=== PATIENT | female | born 1940 | race Caucasian/White ===

== ENCOUNTER 2016-12-12 13:58 | Inpatient (IN) ==
[2016-12-12] MEDS ORDERED: ONDANSETRON ODT 4 MG TABLET PO STA (14:24)
[2016-12-12] MEDS ORDERED: MORPHINE 2 MG/1 ML SYRINGE IV PRN (14:24)
[2016-12-12] MEDS ORDERED: ONDANSETRON 4 MG/2 ML VIAL ONE (14:31)
[2016-12-12] MEDS ORDERED: ONDANSETRON 4 MG/2 ML VIAL IV STA (14:44)
--- NOTE | 2016-12-12 14:53 | Emergency Department Note ---
Skip Hinkle Manpreet, am scribing for, and in the presence of, Rosalino Fontana MD 14: 27. Marizol Hinkle James D, MD, personally performed the services described in this documentation, ascribed by Silverio Valdivia in my presence, and it is both accurate and complete 451 . Arrival - Arrival Chief Complaint: Abdominal / Flank Pain Stated Complaint: Hernia Surgical consult ED Nursing Triage Note: Pt c/o right sided abd pain with nausea since 0900 this am. Pt sent for surgical consult of a hernia. Mode of Arrival: Stretcher Limitations: No Limitations Source: Patient, RN Notes Reviewed - History of Present Illness HPI Narrative: Pt is a 76 y/o female who presents to the ED with CC of Abd pain with nausea that began at 0900 this AM. Pt had a CA surgery on her fallopian tube 3 years ago in [place], [place] at [facility]. Pt has had not problems with the hernia until recently. Pt has not had nml BM and goes through phases of constipation and diarrhea. Pt denies any dysuria or fever. Pt also had cataract surgery by Dr. Mejia. No other pains/complaints reported to the ED. Onset (ago): hour(s) Consistency: constant Severity: moderate Severity scale (1-10): 3 Quality: cramping Allergies/Adverse Reactions: Allergies Allergy/AdvReac Type Severity Reaction Status Date / Time Sulfa (Sulfonamide Allergy RASH Verified 12/12/16 14:02 Antibiotics) Home Medications: Home Medications Medication Instructions Recorded Confirmed Type Aliskiren/Hydrochlorothiazide 1 tablet PO QAM 12/12/16 12/12/16 History [Tekturna Hct 300-12.5 mg Tab] Ciprofloxacin 0.3% Oph Soln 1 drop LEFT EYE BID 12/12/16 12/12/16 History [Ciloxan 0.3% Oph Soln] Ciprofloxacin 0.3% Oph Soln 1 drop RIGHT EYE QID 12/12/16 12/12/16 History [Ciloxan 0.3% Oph Soln] Gabapentin [Gabapentin] 300 mg PO 1200 12/12/16 12/12/16 History Gabapentin [Gabapentin] 600 mg PO BID 12/12/16 12/12/16 History Ketorolac 0.5% Oph Soln [Acular 1 drop LEFT EYE BID 12/12/16 12/12/16 History 0.5% Oph Soln] Ketorolac 0.5% Oph Soln [Acular 1 drop RIGHT EYE QID 12/12/16 12/12/16 History 0.5% Oph Soln] prednisoLONE AC 1% OPH SUSP [Pred 1 drop LEFT EYE BID 12/12/16 12/12/16 History Forte] prednisoLONE AC 1% OPH SUSP [Pred 1 drop RIGHT EYE QID 12/12/16 12/12/16 History Forte] Review of System - Review of System 12 point system: reviewed and no additional remarkable complaints except as stated - Review of System Constitutional: Absent: chills, diaphoresis, fever Head/Ears/Nose/Throat: Absent: sore throat Respiratory: Absent: cough, respiratory distress, wheezing Cardiovascular: Absent: chest pain Gastrointestinal: Present: abdominal pain, nausea. 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 VITAL SIGNS: Reviewed HEENT: Head is atraumatic and normocephalic. Pupils are equal round react to light. Extraocular movements are intact. Oropharynx is benign with moist mucous membranes. NECK: Neck is soft and supple without tenderness. There are no masses. There is no lymphadenopathy. LUNGS: Lungs are clear to auscultation. Chest rises symmetrically. There is no chest wall tenderness. CV: Heart is regular rate and rhythm without murmurs rubs or gallops. ABDOMEN: Abdomen is soft, minimal tenderness to palpation just to the right of midline. Patient has a large ventral hernia present which is easily reducible. There is no overlying erythema. There are no abdominal abnormal masses palpated. There is no organomegaly. Bowel sounds are present and active. SKIN: Skin is warm and dry. No rash. EXTREMITIES: Patient has full range of motion without tenderness. There is no pedal edema. NEUROLOGIC: Awake alert and oriented 4. Cranial nerves II through XII are grossly intact. Motor is 5 over 5 in all extremities bilaterally. Course - Consultations Consultation #1: Discussed with Dr. Cisco LEE. Patient will be admitted to his service. Patient was seen in the emergency department by Dr. Cisco LEE. Time: 16:08 Results - Labs CBC & BMP: 12/12/16 14:48 12/12/16 14:48 Lab Results: I have reviewed the patients labs Disposition Clinical Impression: Right sided abdominal pain, Large ventral hernia, Acute pancreatitis Case discussed with: patient Disposition: Still a Patient Condition: Stable Time of Disposition: 16:08
[2016-12-12 14:57] LABS: Basophils % 0.1 % (0.0-0.8); Eosinophils % 0.1 % (0.00-10.9); Hematocrit 37.6 VOL% (35.7-47.0); Hemoglobin 12.9 GM/DL (12.0-16.0); Immature Granulocytes % 0.2 %; Immature Granulocytes Absolute 0.02 #; Lymphocytes # 1.3 10*3/uL (1.4-4.0); Lymphocytes % 15.4 % (21.3-54.2); Mean Corpuscular HGB Conc 34.3 GM/DL (32-36); Mean Corpuscular Hemoglobin 31 PG (27-34); Mean Platelet Volume 9.8 FL (9.6-12.0); Monocytes # 0.4 10*3/uL (0.11-0.8); Monocytes % 4.5 % (1.7-12.7); Neutrophils # 6.8 10*3/uL (1.4-7.4); Neutrophils % 79.7 % (38.7-73.9); Platelet Count 196 T/CUMM (130-400); Red Blood Count 4.18 MC/CUMM (3.8-5.5); Red Cell Distribution Width 13.3 % (9.3-17.3); White Blood Count 8.5 T/CUMM (4-12)
[2016-12-12 15:28] LABS: Albumin 3.7 G/DL (3.4-5.0); Bilirubin,Total 0.4 MG/DL (0.2-1.0); Calcium 9.3 MG/DL (8.5-10.1); Osmolality,Calculated 278.5 MOS/KG (273-304); Total Protein 8.4 G/DL (6.4-8.3)
[2016-12-12] MEDS ORDERED: SODIUM CHLORIDE 0.9% 2,000 ML IV STA (16:10)
[2016-12-12] MEDS ORDERED: HYDROmorphone 2 MG/1 ML VIAL IV PRN ×2 (16:11→16:29)
--- NOTE | 2016-12-12 16:17 | CT Report ---
Referring physician: Rosalino Fontana EXAM: CT abdomen and pelvis with contrast DATE: 12/12/2016 COMPARISON: 12/12/2016, 07/28/2013 REASON: Generalized abdominal and pelvic pain TECHNIQUE: Axial images of the abdomen and pelvis were obtained after administration of 100 cc of Omnipaque 350 IV contrast. Oral contrast was also administered. Coronal and sagittal reformatted images were also provided. Total DLP is 873.90 mGy*cm. FINDINGS: The heart is enlarged with coronary artery calculations and cardiac fat pads. Atelectasis/minimal infiltration at the lung bases with minimal subpleural nodularity. Fatty infiltration of the liver which is normal in size with no masses or significant change in the size of the bile ducts. Persistent calcified gallstones with minimal distention of the gallbladder. The spleen is borderline in size. The pancreas, and adrenal glands are stable in appearance with small renal cysts. The largest cyst measures 24 mm in the upper pole of the left kidney. Calcification in the wall of the nondilated abdominal aorta with no adjacent adenopathy. Small hiatal hernia with only minimal oral contrast. No stricture dilatation of small bowel. Portions of the transverse colon projects in a 95 x 75 x 45 mm right ventral hernia near the level of the umbilicus. There is increased fluid in the colon with diverticulosis. No evidence of definite diverticulitis, appendicitis, free fluid, or free air. Prior hysterectomy with very minimal free fluid in the pelvis. Degenerative changes are noted. IMPRESSION: Persistent cholelithiasis with fatty infiltration of the liver. Cardiomegaly with diffuse arterial calcifications including coronary artery calcifications. Small hiatal hernia with no dilatation of small bowel. 95 x 75 x 45 mm right ventral hernia at the level the umbilicus which contains a portion of the transverse colon. Increased fluid in the colon which is a nonspecific finding but could be related to infectious or inflammatory process. The neck of the hernia measures 26 mm with no significant compression of the colon. Correlation with physical exam concerning reducibility of hernia is recommended because of the increased fluid. Diverticulosis of the colon. Prior hysterectomy with trace amount of free fluid in the pelvis. The CT exam was performed using one or more of the following dose reduction techniques: Automated exposure control and adjustment of the mA and/or kV according to patient size. PROCEDURE INTERPRETED AT [facility] DEPARTMENT OF RADIOLOGY Final Report Signed by: Dr. Jocelin Price
--- NOTE | 2016-12-12 16:27 | XRay Report ---
Single view of the chest. Indication: Chest and abdomen pain. No previous study. The heart is borderline enlarged with left ventricular hypertrophy. There is uncoiling of the thoracic aorta which often indicates chronic hypertension. A Chemo-Port is in place with its distal tip in the SVC. There is mild scarring or atelectasis at the left lung base. The pulmonary vasculature is normal. No consolidation, pneumothorax, or pleural effusion. Degenerative changes of the spinal column and shoulders. Impression: Scarring or mild atelectasis at the left lung base. Borderline enlargement of the heart. PROCEDURE INTERPRETED AT [facility] DEPARTMENT OF RADIOLOGY Final Report Signed by: Dr. Beckie Tinoco
--- NOTE | 2016-12-12 16:27 | General Surg History&Physical ---
Assessment and Plan - Time spent with patient Time spent with patient: Greater than 30 minutes (1) Acute pancreatitis Status: Acute Assessment and plan: She appears to have acute pancreatitis. It is unclear if this is biliary in origin. She does have normal liver function tests. She will need to be admitted and placed on IV fluids and resuscitated. We will check a gallbladder ultrasound. She also has an incisional hernia that I do not think is the source of her symptoms. This should be addressed electively. I was able to reduce her hernia without difficulty. Current Visit: Yes History of Present Illness Chief complaint: Abdominal pain History of present illness: Ms. Morin is a 76 year old female Who had a sudden onset of mid abdominal pain this morning. She thought the pain was coming from her hernia which she says is been present for about 3 years ever since she had cancer surgery in [place]. She has had some nausea and vomiting associated with her pain. The pain is constant. She was seen at [place] emergency room and noted to have a hernia and it was felt to be an incarcerated hernia causing her symptoms. She does not know of any aggravating or alleviating factors. The pain is severe. Home Medications Medication Instructions Recorded Confirmed Type Aliskiren/Hydrochlorothiazide 1 tablet PO QAM 12/12/16 12/12/16 History [Tekturna Hct 300-12.5 mg Tab] Ciprofloxacin 0.3% Oph Soln 1 drop LEFT EYE BID 12/12/16 12/12/16 History [Ciloxan 0.3% Oph Soln] Ciprofloxacin 0.3% Oph Soln 1 drop RIGHT EYE QID 12/12/16 12/12/16 History [Ciloxan 0.3% Oph Soln] Gabapentin [Gabapentin] 300 mg PO 1200 12/12/16 12/12/16 History Gabapentin [Gabapentin] 600 mg PO BID 12/12/16 12/12/16 History Ketorolac 0.5% Oph Soln [Acular 1 drop LEFT EYE BID 12/12/16 12/12/16 History 0.5% Oph Soln] Ketorolac 0.5% Oph Soln [Acular 1 drop RIGHT EYE QID 12/12/16 12/12/16 History 0.5% Oph Soln] prednisoLONE AC 1% OPH SUSP [Pred 1 drop LEFT EYE BID 12/12/16 12/12/16 History Forte] prednisoLONE AC 1% OPH SUSP [Pred 1 drop RIGHT EYE QID 12/12/16 12/12/16 History Forte] Allergies Allergy/AdvReac Type Severity Reaction Status Date / Time Sulfa (Sulfonamide Allergy RASH Verified 12/12/16 14:02 Antibiotics) Medical,Surgical,& Family Hx - Medical History Cardio: History of: Hypertension 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) - Surgical History HEENT Surgeries: Surgical HX of: Eye Surgery (Moise Cataract) Reproductive Surgeries: Surgical HX of;: Hysterectomy - Family History Family History: noncontributory - Social History Smoking Status: Never smoker Frequency of Alcohol Use: None Type of Drug Use: None Exam - Constitutional Vitals: Period Temp Pulse Resp BP Sys/Lazaro Pulse Ox Last 24 Hr 97.4 F-97.4 F 67-67 18-18 157-157/98-98 98 General appearance: no acute distress - Head Head exam: Present: normocephalic - Eye Eye exam: Absent: scleral icterus - ENT Mouth exam: Present: normal voice - Neck Neck exam: Present: trachea midline. Absent: tenderness, thyromegaly - Respiratory Respiratory exam: Present: clear to auscultation bilaterally. Absent: accessory muscle use - Cardiovascular Cardiovascular exam: Present: RRR - GI/Abdominal GI/Abdominal exam: Present: hypoactive bowel sounds, hernia (Reducible and nontender), tenderness, soft. Absent: distended, guarding, mass, rebound - Extremities Exam Extremities exam: Absent: edema - Back Exam Back exam: Absent: CVA tenderness (L), CVA tenderness (R) - Neurological Exam Neurological exam: Present: alert, oriented X3. Absent: motor sensory deficit Speech: Present: normal - Skin Skin exam: Present: normal color - Constitutional Constitutional: Absent: anorexia, chills, fever(s), weight loss - Cardiovascular Cardiovascular: Absent: chest pain at rest, chest pain with activity, dyspnea, dyspnea on exertion - Respiratory Respiratory: Absent: dyspnea, hemoptysis, dyspnea on exertion - Gastrointestinal Gastrointestinal: Present: abdominal pain, bloating, nausea, vomiting. Absent: cramping, hematemesis, hematochezia, melena, jaundice - Genitourinary Genitourinary: Absent: dysuria, hematuria - Musculoskeletal Musculoskeletal: Absent: back pain - Neurological Neurological: Absent: focal weakness, syncope - Endocrine Endocrine: Absent: polyuria Hematologic/Lymphatic: Absent: easy bleeding, easy bruising Results - Labs CBC & BMP: 12/12/16 14:48 12/12/16 14:48 Lab Results: I have reviewed the past 24 hour labs - Diagnostic Findings Procedure: CT Abdomen and Pelvis: image reviewed by me
--- NOTE | 2016-12-12 16:28 | XRay Report ---
2 view abdomen. Indication: Generalized abdominal pain. The heart is borderline enlarged. No free air is identified. Contrast material is seen within normal-appearing collecting systems and urinary bladder. Cholelithiasis. Normal bowel gas pattern. Scoliosis and degenerative change involving the spinal column. Degenerative changes are seen at both hips. Impression: Cholelithiasis. PROCEDURE INTERPRETED AT [facility] DEPARTMENT OF RADIOLOGY Final Report Signed by: Dr. Beckie Tinoco
[2016-12-12] MEDS ORDERED: ACETAMINOPHEN 325 MG TABLET PO PRN (16:29)
[2016-12-12] MEDS ORDERED: ONDANSETRON 4 MG/2 ML VIAL IV PRN (16:29)
--- NOTE | 2016-12-12 17:02 | Ultrasound Report ---
Exam: US gallbladder Date: 12/12/2016 4:11 PM Comparison: CT 12/12/2016 Indication: Pancreatitis Technique:[Multiple transabdominal real-time scans were obtained. Color flow scans were obtained. Ultrasound images were captured and stored.] Findings: Multiple hyperechoic foci in the gallbladder with posterior acoustical shadowing. Multiple stones are noted in the neck of the gallbladder which did not move. The wall of the gallbladder is not significantly thickened measuring 1.6 mm. CBD is normal in size measuring 5.2 mm. The liver is normal in size with fatty infiltration. Right kidney measures 86 mm in length with no mass or hydronephrosis. The pancreas is partially obscured by bowel gas but does not appear to be significantly enlarged. The pancreatic duct measures 2.96 mm. No surrounding peripancreatic fluid identified. The visualized aorta is normal in size with the aortic bifurcation and IVC are secured by bowel gas. Color flow scans obtained. Impression: Cholelithiasis with stones in the neck of the gallbladder which do not move. No dilatation of the common bile duct. Minimally prominent pancreatic duct measuring 2.96 mm. No significant enlargement of the pancreas at this time but early pancreatitis may be present which is occult on CT and ultrasound. PROCEDURE INTERPRETED AT [facility] DEPARTMENT OF RADIOLOGY Final Report Signed by: Dr. Jocelin Price
[2016-12-12] MEDS: DEXTROSE 5% LACTATED RINGERS 1,000 ML IV SCH (17:35)
[2016-12-12] MEDS: PIPERACILLIN/TAZOBACTAM 3,375 MG in SODIUM CHLORIDE 0.9% 100 ML IV SCH (17:35)
[2016-12-13] MEDS: PIPERACILLIN/TAZOBACTAM 3,375 MG in SODIUM CHLORIDE 0.9% 100 ML IV SCH ×3 (02:36→17:25)
[2016-12-13] MEDS: DEXTROSE 5% LACTATED RINGERS 1,000 ML IV SCH ×4 (03:16→23:35)
[2016-12-13 06:14] LABS: Albumin 3.2 G/DL (3.4-5.0); Bilirubin,Total 1.6 MG/DL (0.2-1.0); Calcium 8.9 MG/DL (8.5-10.1); Osmolality,Calculated 279.4 MOS/KG (273-304); Potassium 3.9 MMOL/L (3.5-5.1); Total Protein 7.4 G/DL (6.4-8.3)
--- NOTE | 2016-12-13 08:08 | General Surgery Progress Note ---
Assessment and Plan (1) Acute pancreatitis Status: Acute Assessment and plan: She appears to have acute pancreatitis. It is unclear if this is biliary in origin. She does have normal liver function tests. She will need to be admitted and placed on IV fluids and resuscitated. We will check a gallbladder ultrasound. She also has an incisional hernia that I do not think is the source of her symptoms. This should be addressed electively. I was able to reduce her hernia without difficulty. 12/13: She feels better and has much less abdominal pain. Her lipase is still markedly elevated. I see that her bilirubin is up just a little bit we will need to keep an eye on this. I do not think that there is an indication for ERCP at this point. It appears that the etiology of her acute pancreatitis is biliary. After her pancreatitis has subsided we can look at laparoscopic cholecystectomy. Current Visit: Yes Subjective Patient reports: Present: feels better, pain is less. Absent: nausea, vomiting , shortness of breath Exam - Constitutional Vitals: Period Temp Pulse Resp BP Sys/Lazaro Pulse Ox Last 24 Hr 96.9 F-99.4 F 54-67 18-20 135-168/73-98 96-100 General appearance: no acute distress - Head Head exam: Present: normocephalic - Eye Eye exam: Absent: scleral icterus - Neck Neck exam: Present: trachea midline - Respiratory Respiratory exam: Absent: accessory muscle use - GI/Abdominal GI/Abdominal exam: Present: soft. Absent: distended, guarding, mass, tenderness , rebound - Extremities Exam Extremities exam: Absent: edema Results - Labs CBC & BMP: 12/12/16 14:48 12/13/16 04:46 Lab Results: I have reviewed the past 24 hour labs - Diagnostic Findings Procedure: Ultrasound: report reviewed by me
[2016-12-13] MEDS: PANTOPRAZOLE 40 MG TABLET PO SCH (09:23)
[2016-12-13] MEDS: ENOXAPARIN 30 MG/0.3 ML SYRINGE SUBCUT SCH (10:54)
[2016-12-14] MEDS: PIPERACILLIN/TAZOBACTAM 3,375 MG in SODIUM CHLORIDE 0.9% 100 ML IV SCH ×3 (02:30→17:22)
[2016-12-14] MEDS: DEXTROSE 5% LACTATED RINGERS 1,000 ML IV SCH ×2 (07:00→15:53)
[2016-12-14 08:24] LABS: Albumin 3.5 G/DL (3.4-5.0); Bilirubin,Total 0.8 MG/DL (0.2-1.0); Calcium 8.9 MG/DL (8.5-10.1); Osmolality,Calculated 275.5 MOS/KG (273-304); Potassium 3.9 MMOL/L (3.5-5.1); Total Protein 7.9 G/DL (6.4-8.3)
--- NOTE | 2016-12-14 08:32 | General Surgery Progress Note ---
Assessment and Plan (1) Acute pancreatitis Status: Acute Assessment and plan: She appears to have acute pancreatitis. It is unclear if this is biliary in origin. She does have normal liver function tests. She will need to be admitted and placed on IV fluids and resuscitated. We will check a gallbladder ultrasound. She also has an incisional hernia that I do not think is the source of her symptoms. This should be addressed electively. I was able to reduce her hernia without difficulty. 12/13: She feels better and has much less abdominal pain. Her lipase is still markedly elevated. I see that her bilirubin is up just a little bit we will need to keep an eye on this. I do not think that there is an indication for ERCP at this point. It appears that the etiology of her acute pancreatitis is biliary. After her pancreatitis has subsided we can look at laparoscopic cholecystectomy. 12/14: She feels better but still has some pain and had some nausea and vomiting early this morning. Her lipase is still mildly elevated but much improved from before. Her liver function tests are normal suggesting probably passage of a stone at the ampulla. I do not think she is quite ready for cholecystectomy. We will reassess tomorrow and look at maybe doing a laparoscopic cholecystectomy prior to discharge. Current Visit: Yes Subjective Patient reports: Present: feels better, pain is less, nausea, vomiting Exam - Constitutional Vitals: Period Temp Pulse Resp BP Sys/Lazaro Pulse Ox Last 24 Hr 96.6 F-98.0 F 57-65 16-20 141-161/77-95 94-97 General appearance: no acute distress - Eye Eye exam: Absent: scleral icterus - Respiratory Respiratory exam: Absent: accessory muscle use - GI/Abdominal GI/Abdominal exam: Present: soft. Absent: distended, tenderness Results - Labs CBC & BMP: 12/12/16 14:48 12/14/16 07:39 Lab Results: I have reviewed the past 24 hour labs
[2016-12-14] MEDS: PANTOPRAZOLE 40 MG TABLET PO SCH (09:44)
[2016-12-14] MEDS: ENOXAPARIN 30 MG/0.3 ML SYRINGE SUBCUT SCH (10:39)
[2016-12-15] MEDS: PIPERACILLIN/TAZOBACTAM 3,375 MG in SODIUM CHLORIDE 0.9% 100 ML IV SCH ×3 (01:49→17:40)
[2016-12-15 05:08] LABS: Eosinophils # 0.1 10*3/uL (0.0-0.87); Eosinophils % 1.9 % (0.00-10.9); Hematocrit 33.5 VOL% (35.7-47.0); Hemoglobin 11.4 GM/DL (12.0-16.0); Immature Granulocytes % 0.2 %; Immature Granulocytes Absolute 0.01 #; Lymphocytes # 1.2 10*3/uL (1.4-4.0); Lymphocytes % 28.2 % (21.3-54.2); Mean Corpuscular Hemoglobin 31 PG (27-34); Mean Platelet Volume 10.5 FL (9.6-12.0); Monocytes # 0.3 10*3/uL (0.11-0.8); Monocytes % 8.3 % (1.7-12.7); Neutrophils # 2.5 10*3/uL (1.4-7.4); Neutrophils % 61.4 % (38.7-73.9); Platelet Count 182 T/CUMM (130-400); Red Blood Count 3.68 MC/CUMM (3.8-5.5); Red Cell Distribution Width 13.3 % (9.3-17.3); White Blood Count 4.1 T/CUMM (4-12)
[2016-12-15] MEDS: PANTOPRAZOLE 40 MG TABLET PO SCH (08:32)
[2016-12-15] MEDS: DEXTROSE 5% LACTATED RINGERS 1,000 ML IV SCH ×3 (08:33→16:38)
--- NOTE | 2016-12-15 10:35 | General Surgery Progress Note ---
Assessment and Plan (1) Acute pancreatitis Status: Acute Assessment and plan: She appears to have acute pancreatitis. It is unclear if this is biliary in origin. She does have normal liver function tests. She will need to be admitted and placed on IV fluids and resuscitated. We will check a gallbladder ultrasound. She also has an incisional hernia that I do not think is the source of her symptoms. This should be addressed electively. I was able to reduce her hernia without difficulty. 12/13: She feels better and has much less abdominal pain. Her lipase is still markedly elevated. I see that her bilirubin is up just a little bit we will need to keep an eye on this. I do not think that there is an indication for ERCP at this point. It appears that the etiology of her acute pancreatitis is biliary. After her pancreatitis has subsided we can look at laparoscopic cholecystectomy. 12/14: She feels better but still has some pain and had some nausea and vomiting early this morning. Her lipase is still mildly elevated but much improved from before. Her liver function tests are normal suggesting probably passage of a stone at the ampulla. I do not think she is quite ready for cholecystectomy. We will reassess tomorrow and look at maybe doing a laparoscopic cholecystectomy prior to discharge. 12/15: She is feeling better. Her lipase was down yesterday. Her abdomen is softer and having less pain. I think we are at a point where we can look at doing laparoscopic cholecystectomy. We can possibly do this tomorrow. The plan for treatment was discussed with the patient and her family. They understand that the cholecystectomy is to prevent recurrence. Current Visit: Yes Subjective Patient reports: Present: feels better, pain is less. Absent: nausea, vomiting , fever Exam - Constitutional Vitals: Period Temp Pulse Resp BP Sys/Lazaro Pulse Ox Last 24 Hr 96.7 F-98.1 F 57-78 17-20 115-161/73-91 95-99 General appearance: no acute distress - Head Head exam: Present: normocephalic - Eye Eye exam: Absent: scleral icterus - Respiratory Respiratory exam: Absent: accessory muscle use - GI/Abdominal GI/Abdominal exam: Present: soft. Absent: distended, tenderness, rebound Results - Labs CBC & BMP: 12/15/16 04:31 12/14/16 07:39 Lab Results: I have reviewed the past 24 hour labs
[2016-12-15] MEDS: ENOXAPARIN 30 MG/0.3 ML SYRINGE SUBCUT SCH (10:54)
--- NOTE | 2016-12-15 12:34 | EKG Report ---
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
[2016-12-16] MEDS: DEXTROSE 5% LACTATED RINGERS 1,000 ML IV SCH ×2 (01:46→19:21)
[2016-12-16] MEDS: PIPERACILLIN/TAZOBACTAM 3,375 MG in SODIUM CHLORIDE 0.9% 100 ML IV SCH ×3 (01:47→17:53)
[2016-12-16] MEDS: PANTOPRAZOLE 40 MG TABLET PO SCH ×2 (08:25→19:37)
--- NOTE | 2016-12-16 09:18 | General Surgery Progress Note ---
Assessment and Plan (1) Acute pancreatitis Status: Acute Assessment and plan: She appears to have acute pancreatitis. It is unclear if this is biliary in origin. She does have normal liver function tests. She will need to be admitted and placed on IV fluids and resuscitated. We will check a gallbladder ultrasound. She also has an incisional hernia that I do not think is the source of her symptoms. This should be addressed electively. I was able to reduce her hernia without difficulty. 12/13: She feels better and has much less abdominal pain. Her lipase is still markedly elevated. I see that her bilirubin is up just a little bit we will need to keep an eye on this. I do not think that there is an indication for ERCP at this point. It appears that the etiology of her acute pancreatitis is biliary. After her pancreatitis has subsided we can look at laparoscopic cholecystectomy. 12/14: She feels better but still has some pain and had some nausea and vomiting early this morning. Her lipase is still mildly elevated but much improved from before. Her liver function tests are normal suggesting probably passage of a stone at the ampulla. I do not think she is quite ready for cholecystectomy. We will reassess tomorrow and look at maybe doing a laparoscopic cholecystectomy prior to discharge. 12/15: She is feeling better. Her lipase was down yesterday. Her abdomen is softer and having less pain. I think we are at a point where we can look at doing laparoscopic cholecystectomy. We can possibly do this tomorrow. The plan for treatment was discussed with the patient and her family. They understand that the cholecystectomy is to prevent recurrence. 12/16: She feels much better and her abdominal symptoms are nearly completely resolved. She is ready for laparoscopic cholecystectomy to prevent recurrence however I ordered an EKG on her and this shows possible acute W[place]. We will have her evaluated by cardiology. My suspicion for an acute cardiac event is low but since the surgery is not emergent we will hold off today and have her evaluated by cardiology. This plan was discussed in detail with her and her family. Current Visit: Yes Subjective Patient reports: Present: feels better, pain is less. Absent: nausea, vomiting Exam - Constitutional Vitals: Period Temp Pulse Resp BP Sys/Lazaro Pulse Ox Last 24 Hr 96.7 F-97.7 F 53-67 16-18 140-182/72-91 96-100 General appearance: no acute distress - Head Head exam: Present: normocephalic - Eye Eye exam: Absent: scleral icterus - Respiratory Respiratory exam: Absent: accessory muscle use - GI/Abdominal GI/Abdominal exam: Present: soft. Absent: distended, tenderness Results - Labs CBC & BMP: 12/15/16 04:31 12/14/16 07:39 Lab Results: I have reviewed the past 24 hour labs
[2016-12-16] MEDS: ENOXAPARIN 30 MG/0.3 ML SYRINGE SUBCUT SCH (11:00)
--- NOTE | 2016-12-16 14:21 | ECHO Report ---
Kyle Morin Exam Date: 12/16/2016 10:17 Referring Physician: Technologist: Gabbie Khanna Age: 76 Ht (in): 65 Wt (lb): 175 Gender: F Exam Location: [facility] Echo Indications: abd. pain, Hx. hypertension, abn. ekg BP: 182 / 91 HR: 57 Rhythm: bradycardia Technical Quality: IMPRESSIONS Normal left ventricular cavity size left ventricular ejection fraction is estimated at 60 %. Grade II diastolic dysfunction. No regional wall motion abnormality. Tricuspid regurgitation velocities suggest a RVSP of 31mmHg + RAP. Mild aortic valve regurgitation with a pressure halftime of 888 msec. MEASUREMENTS (Male / Female) Normal Values 2D ECHO LV Diastolic Diameter PLAX 3.7 cm 4.2 - 5.9 / 3.9 - 5.3 cm LV Systolic Diameter PLAX 2.3 cm LV Fractional Shortening PLAX 39.0 % IVS Diastolic Thickness 0.9 cm 0.6 - 1.0 / 0.6 - 0.9 cm LVPW Diastolic Thickness 1.2 cm 0.6 - 1.0 / 0.6 - 0.9 cm Aortic Root Diameter 2.7 cm LA Systolic Diameter LX 3.2 cm 3.0 - 4.0 / 2.7 - 3.8 cm DOPPLER TR Peak Velocity 280.0 cm/s TR Peak Gradient 31.4 mmHg FINDINGS Left Ventricle Normal left ventricular cavity size left ventricular ejection fraction is estimated at 60 %. Grade II diastolic dysfunction. No regional wall motion abnormality. Right Ventricle Normal right ventricular size. Right Atrium Normal right atrial size. Left Atrium Normal left atrial size. Mitral Valve Morphologically normal mitral valve. Trace mitral valve regurgitation. Aortic Valve Mild aortic valve sclerosis without stenosis. Mild aortic valve regurgitation with a pressure halftime of 888 msec. Tricuspid Valve Morphologically normal tricuspid valve. Trace tricuspid valve regurgitation. Tricuspid regurgitation velocities suggest a RVSP of 31mmHg + RAP. Pulmonic Valve Morphologically normal pulmonic valve. Trace pulmonary valve regurgitation. Pericardium No pericardial effusion. Aorta Normal size aortic root and proximal ascending aorta. Naina Torre (Electronically Signed) Final Date: 16 December 2016 14:20
--- NOTE | 2016-12-16 16:31 | Cardiology Consult Note ---
Leda Hinkle April RN, am scribing for, and in the presence of, Gabriela Parkinson MD 16:30. Assessment and Plan - Time spent with patient Time spent with patient: Greater than 30 minutes (Due to assessment, planning, documentation, medication review) (1) Abnormal EKG Status: Acute Current Visit: Yes (2) Hypertension Status: Chronic Current Visit: Yes (3) Acute pancreatitis Status: Acute Current Visit: Yes History of Present Illness - Data of Consult Patient: new to practice Consult date: 12/16/16 Requesting Physician: Moy Peck III. 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 Marely Yanez Ms. Morin is a 76 year old female who reports she has seen Dr. Kuhn in the remote past for hypertension. She did not require any follow-up. She is not sure how long ago this was and I am unable to find any record of this visit. She denies ever having had a heart catheterization or stress testing. She has a history of hypertension and fallopian tube cancer. She is no longer requiring any treatments for this cancer. Surgical history includes bilateral cataracts, hysterectomy, and tonsillectomy. Family history is positive for daughter and brother with diabetes and mother with heart disease. She reports she is a lifetime non-smoker. Mr. Morin began having abdominal pain on the morning of December 12 and presented to the emergency department at [facility]. She was diagnosed with gallstone pancreatitis. In anticipation of laparoscopic cholecystectomy, an EKG was ordered and showed a possible SD. Cardiology has been asked to evaluate patient regarding this. She denies having any chest pain or shortness of breath now or in the past. There is been no change in her exercise tolerance, she denies any orthopnea, lower extremity edema, palpitations. We ordered an echocardiogram on her chart was reviewed and the consult was received, and I have reviewed this. She has no regional wall motion abnormalities that would be consistent with a prior myocardial infarction (as suggested by her ECG). Her blood pressure has been elevated, but her ARB was not resumed upon admission. Assessment/plan: 1. Abnormal EKG-I suspect this is secondary to lead placement and her habitus. There is no evidence of prior myocardial infarction. She has no cardiac symptoms, and normal systolic function. She has not had an acute coronary event , nor does she have any evidence of heart failure. Accordingly, she is at low intermediate risk of perioperative cardiovascular complications with planned surgery. No further workup is required prior to proceeding. 2. Hypertension-I would resume her ARB. We will do this postoperatively when we see what her blood pressures are doing. 3. Acute pancreatitis-this is being managed by Dr. Peck. CC: Moy Peck III., - Home Medications and Allergies Home Medications: Home Medications Medication Instructions Recorded Confirmed Type Aliskiren/Hydrochlorothiazide 1 each PO DAILY 12/12/16 12/12/16 History [Tekturna Hct 300-12.5 mg Tab] Aliskiren/Hydrochlorothiazide 1 tablet PO QAM 12/12/16 12/12/16 History [Tekturna Hct 300-12.5 mg Tab] Ciprofloxacin 0.3% Oph Soln 1 drop LEFT EYE BID 12/12/16 12/12/16 History [Ciloxan 0.3% Oph Soln] Ciprofloxacin 0.3% Oph Soln 1 drop RIGHT EYE QID 12/12/16 12/12/16 History [Ciloxan 0.3% Oph Soln] Gabapentin [Gabapentin] 300 mg PO 1200 12/12/16 12/12/16 History Gabapentin [Gabapentin] 600 mg PO BID 12/12/16 12/12/16 History Ketorolac 0.5% Oph Soln [Acular 1 drop LEFT EYE BID 12/12/16 12/12/16 History 0.5% Oph Soln] Ketorolac 0.5% Oph Soln [Acular 1 drop RIGHT EYE QID 12/12/16 12/12/16 History 0.5% Oph Soln] prednisoLONE AC 1% OPH SUSP [Pred 1 drop LEFT EYE BID 12/12/16 12/12/16 History Forte] prednisoLONE AC 1% OPH SUSP [Pred 1 drop RIGHT EYE QID 12/12/16 12/12/16 History Forte] Allergies/Adverse Reactions: Allergies Allergy/AdvReac Type Severity Reaction Status Date / Time Sulfa (Sulfonamide Allergy RASH Verified 12/12/16 14:02 Antibiotics) 12 point system: reviewed and no additional remarkable complaints except as stated - Constitutional Constitutional: Present: as per HPI - Cardiovascular Cardiovascular: Absent: chest pain at rest, chest pain with activity, dyspnea, dyspnea on exertion, edema, radiating jaw, neck or arm pain, lightheadedness, orthopnea - Respiratory Respiratory: Absent: cough, dyspnea, hemoptysis, dyspnea on exertion, wheezing - Gastrointestinal Gastrointestinal: Present: abdominal pain, diarrhea, nausea, vomiting. Absent: constipation, hematemesis, hematochezia, melena - Genitourinary Genitourinary: Absent: dysuria, hematuria - Endocrine Endocrine: Present: fatigue Medical,Surgical,& Family Hx - Medical History Cardio: History of: Hypertension Gastrointestinal: History of: GI Problems (hernia) 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- OR in 2013) - Surgical History HEENT Surgeries: Surgical HX of: Eye Surgery (Moise Cataract), Tonsilectomy & Adenoidectomy Reproductive Surgeries: Surgical HX of;: Gynecologic Surgery, Hysterectomy - Family History Family History: Reports;: Family Diabetes (Daughter, brother), Family Heart Disease (Mother) - Social History Smoking Status: Never smoker Have you smoked in the last 12 months: No Frequency of Alcohol Use: None Type of Drug Use: None Lives With:: Children Functional capacity: independent ambulation Physical Examination Vital Signs Temp Pulse Resp BP Pulse Ox 97.4 F L 67 18 157/98 98 12/12/16 14:02 12/12/16 14:02 12/12/16 14:02 12/12/16 14:02 12/12/16 14:02 General: Present: Appears Well, No Apparent Distress HEENT: Present: PERRL, Mucus Membranes Moist Neck: Present: Supple Neck, Midline Trachea, No Bruit Cardiac: Present: Reg Rate and Rhythm, No Murmur Lungs: Present: Normal Breath Sounds, No Wheeze, Rales, Rhonchi Neuro: Present: Grossly Intact. Absent: Resting Tremor, Essential Tremor Abdomen: Present: Soft, Active Bowel Sounds, Tender. Absent: Distended Skin: Absent: Rash, Suspicious Lesions Musculoskeletal: Present: No Pain, Normal Range of Motion Extremities: Present: No Edema, Normal Upper Extr. Pulses, Normal Lower Extr. Pulses Result/EKG - Labs CBC & BMP: 12/15/16 04:31 12/14/16 07:39 Lab Results: I have reviewed the past 24 hour labs Labs: Laboratory Results - last 24 hr 12/15/16 12/15/16 11:25 16:29 POC Glucose 106 123 H - Diagnostic Findings Procedure: Chest x-ray: report reviewed by me - EKG EKG results: interpreted by me EKG shows: sinus rhythm (Poor R-wave progression anteriorly) Iggy Hinkle Jennifer, MD, personally performed the services described in this documentation, ascribed by Darya Tompkins RN in my presence, and it is both accurate and complete 630 .
[2016-12-17] MEDS: DEXTROSE 5% LACTATED RINGERS 1,000 ML IV SCH ×3 (00:30→15:15)
[2016-12-17] MEDS: PIPERACILLIN/TAZOBACTAM 3,375 MG in SODIUM CHLORIDE 0.9% 100 ML IV SCH ×3 (01:44→17:52)
[2016-12-17 06:28] LABS: Basophils % 0.2 % (0.0-0.8); Eosinophils # 0.1 10*3/uL (0.0-0.87); Eosinophils % 1.2 % (0.00-10.9); Hematocrit 35.4 VOL% (35.7-47.0); Immature Granulocytes % 0.2 %; Immature Granulocytes Absolute 0.01 #; Lymphocytes % 20.2 % (21.3-54.2); Mean Corpuscular HGB Conc 33.9 GM/DL (32-36); Mean Corpuscular Hemoglobin 31 PG (27-34); Mean Corpuscular Volume 90.8 FL (87-102); Mean Platelet Volume 10.3 FL (9.6-12.0); Monocytes # 0.4 10*3/uL (0.11-0.8); Monocytes % 7.6 % (1.7-12.7); Neutrophils # 3.5 10*3/uL (1.4-7.4); Neutrophils % 70.6 % (38.7-73.9); Platelet Count 204 T/CUMM (130-400); Red Cell Distribution Width 13.3 % (9.3-17.3)
[2016-12-17 06:59] LABS: Magnesium 2.1 MG/DL (1.8-2.4); Osmolality,Calculated 280.3 MOS/KG (273-304); Potassium 3.8 MMOL/L (3.5-5.1)
[2016-12-17] MEDS: PANTOPRAZOLE 40 MG TABLET PO SCH (08:17)
[2016-12-17] MEDS ORDERED: ALISKIREN 150 MG TABLET PO SCH (09:30)
[2016-12-17] MEDS: ENOXAPARIN 30 MG/0.3 ML SYRINGE SUBCUT SCH (09:32)
[2016-12-17] MEDS: GABAPENTIN 300 MG CAPSULE PO SCH ×2 (11:52→21:25)
[2016-12-17] MEDS ORDERED: GABAPENTIN 300 MG CAPSULE PO SCH (12:00)
--- NOTE | 2016-12-17 12:06 | General Surgery Progress Note ---
Assessment and Plan (1) Acute pancreatitis Status: Acute Assessment and plan: She appears to have acute pancreatitis. It is unclear if this is biliary in origin. She does have normal liver function tests. She will need to be admitted and placed on IV fluids and resuscitated. We will check a gallbladder ultrasound. She also has an incisional hernia that I do not think is the source of her symptoms. This should be addressed electively. I was able to reduce her hernia without difficulty. 12/13: She feels better and has much less abdominal pain. Her lipase is still markedly elevated. I see that her bilirubin is up just a little bit we will need to keep an eye on this. I do not think that there is an indication for ERCP at this point. It appears that the etiology of her acute pancreatitis is biliary. After her pancreatitis has subsided we can look at laparoscopic cholecystectomy. 12/14: She feels better but still has some pain and had some nausea and vomiting early this morning. Her lipase is still mildly elevated but much improved from before. Her liver function tests are normal suggesting probably passage of a stone at the ampulla. I do not think she is quite ready for cholecystectomy. We will reassess tomorrow and look at maybe doing a laparoscopic cholecystectomy prior to discharge. 12/15: She is feeling better. Her lipase was down yesterday. Her abdomen is softer and having less pain. I think we are at a point where we can look at doing laparoscopic cholecystectomy. We can possibly do this tomorrow. The plan for treatment was discussed with the patient and her family. They understand that the cholecystectomy is to prevent recurrence. 12/16: She feels much better and her abdominal symptoms are nearly completely resolved. She is ready for laparoscopic cholecystectomy to prevent recurrence however I ordered an EKG on her and this shows possible acute AK. We will have her evaluated by cardiology. My suspicion for an acute cardiac event is low but since the surgery is not emergent we will hold off today and have her evaluated by cardiology. This plan was discussed in detail with her and her family. 12/17: She looks and feels much better. We are planning for laparoscopic cholecystectomy for tomorrow. She was evaluated by cardiology and felt to be at low risk for perioperative complications. Current Visit: Yes Subjective Patient reports: Present: feels better, tolerating liquids well. Absent: still having pain, nausea, vomiting Exam - Constitutional Vitals: Period Temp Pulse Resp BP Sys/Lazaro Pulse Ox Last 24 Hr 97.1 F-98.3 F 57-70 17-20 151-176/80-96 95-100 General appearance: no acute distress - Eye Eye exam: Absent: scleral icterus - Respiratory Respiratory exam: Absent: accessory muscle use - GI/Abdominal GI/Abdominal exam: Present: soft. Absent: distended, tenderness Results - Labs CBC & BMP: 12/17/16 05:56 12/17/16 05:56 Lab Results: I have reviewed the past 24 hour labs
[2016-12-17] MEDS ORDERED: PREDNISOLONE RIGHT EYE SCH (13:00)
[2016-12-17] MEDS ORDERED: CIPROFLOXACIN 0.3% RIGHT EYE SCH (13:00)
[2016-12-17] MEDS ORDERED: KETOROLAC 0.5% RIGHT EYE SCH (13:00)
--- NOTE | 2016-12-17 13:54 | Cardiology Progress Note ---
I, Darya Tompkins RN, am scribing for, and in the presence of, Gabriela Parkinson MD 13:54. Assessment and Plan (1) Abnormal EKG Status: Acute Current Visit: Yes (2) Hypertension Status: Chronic Current Visit: Yes (3) Acute pancreatitis Status: Acute Current Visit: Yes Cardiology - PN: Subj Interval history: [employer] Crew[employer]: Dr. Kuhn in the remote past PCP: Annabelle Moura Oncologist: Dr. Marely Yanez Summary: Ms. Morin is a 76 year old female who reports she has seen Dr. Kuhn in the remote past for hypertension. She did not require any follow-up. She is not sure how long ago this was and I am unable to find any record of this visit. She denies ever having had a heart catheterization or stress testing. She has a history of hypertension and fallopian tube cancer. She is no longer requiring any treatments for this cancer. Surgical history includes bilateral cataracts, hysterectomy, and tonsillectomy. Family history is positive for daughter and brother with diabetes and mother with heart disease. She reports she is a lifetime non-smoker. Ms. Morin began having abdominal pain on the morning of December 12 and presented to the emergency department at [facility]. She was diagnosed with gallstone pancreatitis. In anticipation of laparoscopic cholecystectomy, an EKG was ordered and showed a possible HI. Cardiology has been asked to evaluate patient regarding this. She denies having any chest pain or shortness of breath now or in the past. There is been no change in her exercise tolerance, she denies any orthopnea, lower extremity edema, palpitations. We ordered an echocardiogram on her chart was reviewed and the consult was received, and I have reviewed this. She has no regional wall motion abnormalities that would be consistent with a prior myocardial infarction (as suggested by her ECG). Her blood pressure has been elevated, but her ARB was not resumed upon admission. December 17, 2016: Ms. Morin is seen resting in bed no acute distress. She denies any chest pain or shortness of breath. She thought she was having surgery today, but this has been delayed until tomorrow. Her blood pressures continue to be elevated. Labs are unremarkable. Assessment/plan: 1. Abnormal EKG-I suspect this is secondary to lead placement and her habitus. There is no evidence of prior myocardial infarction. She has no cardiac symptoms, and normal systolic function. She has not had an acute coronary event , nor does she have any evidence of heart failure. Accordingly, she is at low intermediate risk of perioperative cardiovascular complications with planned surgery. No further workup is required prior to proceeding. 2. Hypertension-we will resume her Tekturna today. 3. Acute pancreatitis-this is being managed by Dr. Peck. Exam (Progress Note) - Constitutional Vitals: Period Temp Pulse Resp BP Sys/Lazaro Pulse Ox Last 24 Hr 97.1 F-98.2 F 56-70 18-20 152-176/80-96 95-100 Exam: General: Present: Appears Well, No Apparent Distress HEENT: Present: PERRL, Mucus Membranes Moist Neck: Present: Supple Neck, Midline Trachea, No Bruit Cardiac: Present: Reg Rate and Rhythm, No Murmur Lungs: Present: Normal Breath Sounds, No Wheeze, Rales, Rhonchi Neuro: Present: Grossly Intact. Absent: Resting Tremor, Essential Tremor Abdomen: Present: Soft, Active Bowel Sounds, mildly tender. Absent: Distended Skin: Absent: Rash, Suspicious Lesions Musculoskeletal: Present: No Pain, Normal Range of Motion Extremities: Present: No Edema, Normal Upper Extr. Pulses, Normal Lower Extr. Pulses Result/EKG - Labs CBC & BMP: 12/17/16 05:56 12/17/16 05:56 Lab Results: I have reviewed the past 24 hour labs Labs: Laboratory Results - last 24 hr 12/17/16 12/17/16 05:56 05:56 WBC 5.0 RBC 3.90 Hgb 12.0 Hct 35.4 L MCV 90.8 MCH 31 MCHC 33.9 RDW 13.3 Plt Count 204 MPV 10.3 Neut % (Auto) 70.6 Lymph % (Auto) 20.2 L Jefferson % (Auto) 7.6 Eos % (Auto) 1.2 Baso % (Auto) 0.2 Neut # (Auto) 3.5 Lymph # (Auto) 1.0 L Jefferson # (Auto) 0.4 Eos # (Auto) 0.1 Baso # (Auto) 0.0 Immature Gran % 0.2 Nucleated RBC % 0.0 Immature Gran # 0.01 Nucleated RBCs # 0.00 Immature Plt Fraction 0.0 Sodium 141 Potassium 3.8 Chloride 107 Carbon Dioxide 27 Anion Gap 10.8 BUN 12 Creatinine 1.20 H GFR Calculation 46 BUN/Creatinine Ratio 10.00 Glucose 92 Calculated Osmolality 280.3 Calcium 9.0 Magnesium 2.1 IIggy Jennifer, MD, personally performed the services described in this documentation, ascribed by Darya Tompkins RN in my presence, and it is both accurate and complete 354 .
[2016-12-17] MEDS ORDERED: CIPROFLOXACIN 0.3% LEFT EYE SCH (21:00)
[2016-12-17] MEDS ORDERED: KETOROLAC 0.5% LEFT EYE SCH (21:00)
[2016-12-17] MEDS ORDERED: PREDNISOLONE LEFT EYE SCH (21:00)
[2016-12-18] MEDS: DEXTROSE 5% LACTATED RINGERS 1,000 ML IV SCH ×4 (01:53→22:03)
[2016-12-18] MEDS: PIPERACILLIN/TAZOBACTAM 3,375 MG in SODIUM CHLORIDE 0.9% 100 ML IV SCH ×3 (01:55→20:28)
[2016-12-18] MEDS: hydroCHLOROthiazide 12.5 MG CAPSULE PO SCH ×2 (07:53→11:22)
[2016-12-18] MEDS: ALISKIREN 150 MG TABLET PO SCH ×2 (07:53→11:22)
[2016-12-18] MEDS ORDERED: TISSUE ADHESIVE 1 EACH APPLICATOR TOP ONE (08:16)
[2016-12-18] MEDS ORDERED: BUPIVACAINE 0.25% 50 ML VIAL ONE (08:18)
--- NOTE | 2016-12-18 09:24 | Operative Note ---
Date of procedure: 12/18/16 Pre-op diagnosis: Biliary pancreatitis Post-op diagnosis: same Procedure: Laparoscopic cholecystectomy with intraoperative cholangiogram (22) Findings and technique: After informed consent was obtained the patient was brought the operating room placed in supine position. After successful induction of general anesthesia the patient's abdomen was prepped and draped in usual sterile fashion. Patient had had extensive previous abdominal surgery with a large complex midline scar and a large chronically incarcerated hernia involving the umbilical region and just above the umbilicus and to the right of the umbilicus over about a 6 cm area. I did not feel that now is the time to do a complex hernia repair which would probably require mesh reconstruction. I elected to gain access to the abdomen through a small incision in the right upper quadrant. Local anesthesia was infiltrated and incision made within the planned lines of a Taurus incision if this was necessary. I incised the fascia and muscle layer by layer entering the peritoneal cavity under direct vision. Page cannula was inserted and pneumoperitoneum was established. Camera was inserted and I looked back toward the umbilical region where there was incarcerated transverse colon and I elected not to try to address this at this setting since she was not obstructed. I placed an 11 mm port just superior to this in the mid upper midline under direct camera vision. Another 5 mm port was placed up near the upper abdomen several centimeters above this. Another 5 mm port was placed in the right upper quadrant under camera vision. Camera was removed to the upper midline port and the gallbladder easily visualized. The gallbladder was thickened and distended. The fundus was grasped and retracted upwards of the liver. The neck of the gallbladder was retracted downward and laterally and the peritoneum over the neck of the gallbladder incised exposing the tapering neck of the gallbladder as it formed the proximal cystic duct and cystic artery as it branched over the medial neck of the gallbladder. The critical view of safety was achieved before incising any structures. A small incision was made at the proximal cystic duct were cholangiogram was obtained which showed a prominent common bile duct and initial emptying of contrast through the ampulla into the duodenum and then this ceased. It was unclear whether this was impacted debris or spasm. I watch this for 5-10 minutes and still did not emptying even when pressurized. The pancreatic duct never opacified. I elected to proceed on with a cholecystectomy and triply clipped the cystic duct and divided it. The cystic artery was doubly clipped on the wall the gallbladder and sharp dissection used to remove the gallbladder from the liver bed with electrocautery on any potential bleeding points. Good hemostasis was maintained and the gallbladder placed in an Endo Catch bag and removed through the Santino port site. Right upper quadrant was liberally irrigated suctioned dry and inspected for 5-10 minutes no bleeding or bile leakage noted. The ports were removed and no bleeding noted from the port sites. Gas was evacuated from the abdomen and the fascial defect in the right upper quadrant closed with running 0 Monocryl suture. Skin incisions were closed with skin clips. She appeared to tolerate the procedure well and she did receive perioperative IV antibiotics. This was a much more difficult cholecystectomy than usual because of her extensive previous surgery and the large incarcerated hernia. We would need to address this at a different time. These factors greatly added to the difficulty and complexity of the case and essentially doubled the usual operative time. Anesthesia: GETA, local Surgeon / Physician: Moy Peck III. Estimated blood loss: minimal Specimens: other (Gallbladder) Condition: stable Disposition: PACU Results - Labs CBC & BMP: 12/17/16 05:56 12/17/16 05:56 Discharge Plan - Discharge Medications No Action Ciprofloxacin 0.3% Oph Soln [Ciloxan 0.3% Oph Soln] 1 drop RIGHT EYE QID prednisoLONE AC 1% OPH SUSP [Pred Forte] 1 drop RIGHT EYE QID prednisoLONE AC 1% OPH SUSP [Pred Forte] 1 drop LEFT EYE BID Gabapentin [Gabapentin] 300 mg PO 1200 Gabapentin [Gabapentin] 600 mg PO BID Aliskiren/Hydrochlorothiazide [Tekturna Hct 300-12.5 mg Tab] 1 each PO DAILY Ketorolac 0.5% Oph Soln [Acular 0.5% Oph Soln] 1 drop RIGHT EYE QID Ketorolac 0.5% Oph Soln [Acular 0.5% Oph Soln] 1 drop LEFT EYE BID Ciprofloxacin 0.3% Oph Soln [Ciloxan 0.3% Oph Soln] 1 drop LEFT EYE BID Aliskiren/Hydrochlorothiazide [Tekturna Hct 300-12.5 mg Tab] 1 tablet PO QAM - Follow Up or Referral - Forms/Instructions
--- NOTE | 2016-12-18 09:45 | Anesthesia Post-Op ---
Anesthesia Post OP - Post Ansesthetic Evaluation Patient seen in post op: Yes Resp: within normal limits CV: within normal limits Mental: within normal limits Temp: within normal limits [id number]-[id number]: within normal limits Nausea and Vomiting: within normal limits Pain: within normal limits
[2016-12-18] MEDS ORDERED: PROPOFOL 200 MG/20 ML VIAL IV ONE (09:48)
[2016-12-18] MEDS ORDERED: MIDAZOLAM 2 MG/2 ML VIAL ONE (09:48)
[2016-12-18] MEDS ORDERED: fentaNYL 100 MCG/2 ML VIAL ONE (09:48)
[2016-12-18] MEDS ORDERED: GLYCOPYRROLATE 0.4 MG/2 ML VIAL ONE (09:49)
[2016-12-18] MEDS ORDERED: NEOSTIGMINE 10 MG/10 ML VIAL ONE (09:49)
[2016-12-18] MEDS ORDERED: KETOROLAC 30 MG/1 ML VIAL ONE (09:49)
[2016-12-18] MEDS ORDERED: ROCURONIUM 100 MG/10 ML VIAL IV ONE (09:49)
[2016-12-18] MEDS ORDERED: ePHEDrine 50 MG/ML AMP ONE (09:49)
[2016-12-18] MEDS ORDERED: SEVOFLURANE 1 UNIT/15 MINUTE INH ONE (09:49)
[2016-12-18] MEDS ORDERED: HYDROmorphone 2 MG/1 ML VIAL IV PRN (09:56)
[2016-12-18] MEDS ORDERED: ONDANSETRON 4 MG/2 ML VIAL IV PRN (09:56)
[2016-12-18] MEDS ORDERED: LACTATED RINGERS 1,000 ML IV SCH (10:00)
[2016-12-18] MEDS: GABAPENTIN 300 MG CAPSULE PO SCH ×3 (11:24→20:23)
[2016-12-18] MEDS: ENOXAPARIN 30 MG/0.3 ML SYRINGE SUBCUT SCH (12:19)
[2016-12-18] MEDS: PANTOPRAZOLE 40 MG TABLET PO SCH (12:19)
--- NOTE | 2016-12-18 14:43 | Fluoroscopy Report ---
History: Patient with abdominal pain and cholelithiasis undergoing cholecystectomy Date: 12/18/2016 Study: Intraoperative cholangiogram Comparison exam: No previous similar Contrast material was injected into the cystic duct stump by Dr. Peck during cholecystectomy. 118 images are captured and archived. Fluoroscopy time is 73.7 seconds. There is a small amount of particulate debris of a nonobstructing nature in the distal most common bile duct. No definite choledochal stone is seen otherwise. There is no abnormal mass or stricture otherwise associated with the common bile duct or partially opacified hepatic ducts. Calcific density gallstones are noted in the lumen of the gallbladder. Impression: Particulate debris in the distal most common bile duct without significant common bile duct obstruction. Cholelithiasis PROCEDURE INTERPRETED AT [facility] DEPARTMENT OF RADIOLOGY Final Report Signed by: Dr. Lilia Alarcon
--- NOTE | 2016-12-18 17:33 | Cardiology Progress Note ---
ILeda April RN, am scribing for, and in the presence of, Gabriela Parkinson MD 17:33. Assessment and Plan (1) Abnormal EKG Status: Acute Current Visit: Yes (2) Hypertension Status: Chronic Current Visit: Yes (3) Acute pancreatitis Status: Acute Current Visit: Yes Cardiology - PN: Subj Interval history: Policeman: Dr. Kuhn in the remote past PCP: Annabelle Moura Oncologist: Dr. Marely Yanez Summary: Ms. Morin is a 76 year old female who reports she has seen Dr. Kuhn in the remote past for hypertension. She did not require any follow-up. She is not sure how long ago this was and I am unable to find any record of this visit. She denies ever having had a heart catheterization or stress testing. She has a history of hypertension and fallopian tube cancer. She is no longer requiring any treatments for this cancer. Surgical history includes bilateral cataracts, hysterectomy, and tonsillectomy. Family history is positive for daughter and brother with diabetes and mother with heart disease. She reports she is a lifetime non-smoker. Ms. Morin began having abdominal pain on the morning of December 12 and presented to the emergency department at [facility]. She was diagnosed with gallstone pancreatitis. In anticipation of laparoscopic cholecystectomy, an EKG was ordered and showed a possible WA. Cardiology has been asked to evaluate patient regarding this. She denies having any chest pain or shortness of breath now or in the past. There is been no change in her exercise tolerance, she denies any orthopnea, lower extremity edema, palpitations. We ordered an echocardiogram on her chart was reviewed and the consult was received, and I have reviewed this. She has no regional wall motion abnormalities that would be consistent with a prior myocardial infarction (as suggested by her ECG). Her blood pressure has been elevated, but her ARB was not resumed upon admission. December 17, 2016: Ms. Morin is seen resting in bed no acute distress. She denies any chest pain or shortness of breath. She thought she was having surgery today, but this has been delayed until tomorrow. Her blood pressures continue to be elevated. Labs are unremarkable. December 18, 2016: Ms. Morin is seen after undergoing laparoscopic cholecystectomy today by Dr. Cisco LEE. She denies any chest pain, shortness of breath, palpitations, or dizziness. Her only complaint is of some right- sided abdominal tenderness. Blood pressures continue to be elevated today, her Tekturna has been restarted but was not given to her today. Assessment/plan: 1. Abnormal EKG-nonspecific finding in the setting of essentially normal echo and no acute coronary syndrome symptoms. 2. Hypertension-her Tekturna was restarted yesterday but she did not receive it today. We will continue to monitor. 3. Acute pancreatitis-this is being managed by Dr. Cisco LEE. She underwent laparoscopic cholecystectomy December 18. Exam (Progress Note) - Constitutional Vitals: Period Temp Pulse Resp BP Sys/Lazaro Pulse Ox Last 24 Hr 97 F-98.4 F 52-80 14-20 145-180/70-96 94-98 Exam: General: Present: Appears Well, No Apparent Distress HEENT: Present: PERRL, Mucus Membranes Moist Neck: Present: Supple Neck, Midline Trachea, No Bruit Cardiac: Present: Reg Rate and Rhythm, No Murmur Lungs: Present: Normal Breath Sounds, No Wheeze, Rales, Rhonchi Neuro: Present: Grossly Intact. Absent: Resting Tremor, Essential Tremor Abdomen: Present: Soft, Active Bowel Sounds, Tender, abdominal dressings noted. Absent: Distended Skin: Absent: Rash, Suspicious Lesions Musculoskeletal: Present: No Pain, Normal Range of Motion Extremities: Present: No Edema, Normal Upper Extr. Pulses, Normal Lower Extr. Pulses Result/EKG - Labs CBC & BMP: 12/17/16 05:56 12/17/16 05:56 Lab Results: I have reviewed the past 24 hour labs IIggy Jennifer, MD, personally performed the services described in this documentation, ascribed by Darya Tompkins RN in my presence, and it is both accurate and complete [id number] .
[2016-12-19] MEDS: DEXTROSE 5% LACTATED RINGERS 1,000 ML IV SCH ×3 (04:31→13:58)
[2016-12-19] MEDS: PIPERACILLIN/TAZOBACTAM 3,375 MG in SODIUM CHLORIDE 0.9% 100 ML IV SCH ×2 (04:34→13:57)
[2016-12-19 06:43] LABS: Albumin 2.8 G/DL (3.4-5.0); Bilirubin,Total 0.9 MG/DL (0.2-1.0); Calcium 8.4 MG/DL (8.5-10.1); Osmolality,Calculated 278.3 MOS/KG (273-304); Potassium 3.9 MMOL/L (3.5-5.1); Total Protein 6.8 G/DL (6.4-8.3)
[2016-12-19] MEDS: hydroCHLOROthiazide 12.5 MG CAPSULE PO SCH (08:33)
[2016-12-19] MEDS: ALISKIREN 150 MG TABLET PO SCH (08:34)
[2016-12-19] MEDS: GABAPENTIN 300 MG CAPSULE PO SCH ×2 (08:35→14:16)
[2016-12-19] MEDS: PANTOPRAZOLE 40 MG TABLET PO SCH (08:35)
--- NOTE | 2016-12-19 08:42 | Event Note ---
She feels well. She has no abdominal pain. Her liver function tests are normal this morning. I think that she probably had spasm at her ampulla. On the cholangiogram she initially had flow of contrast and then flow stopped and I suspect this was spasm. I see no evidence of biliary obstruction today. I see no evidence of pancreatitis her abdomen is benign. She wants to go home and I think this should be fine. We will follow her up in the office in the next week or so.
--- NOTE | 2016-12-19 09:50 | Discharge Summary ---
Hospital Course - Hospital Course Hospital Course: Patient is a 76-year-old female who was admitted with gallstone pancreatitis. Screening EKG revealed abnormal findings with possible acute myocardial infarction and cardiology was consulted. There were no findings to indicate ischemia in further evaluation. The patient's lipase returned normal and her pain improved she was able to tolerate oral intake; she ultimately underwent laparoscopic cholecystectomy. Postoperatively there were no complications. She was voiding without difficulty, mobilizing without difficulty, tolerating oral intake and passing flatus. Her blood pressures were noted to be elevated throughout, but her home medication was restarted and she can follow-up with her PCP. She was discharged home in good condition with plans to follow-up with her PCP for hospital follow-up in 7-10 days, surgical follow-up in approximately 1 week, and cardiology follow-up as needed. The incisional hernia can be addressed at a later date if problematic and on outpatient patient with Dr. Peck. Diagnosis - Discharge Diagnosis (1) Abnormal EKG Status: Acute (2) Acute pancreatitis Status: Acute (3) Hypertension Status: Chronic Specialty Discharge - Follow Up or Referrals Follow up with: Moy Peck III., MD [Physician] - Discharge Plan - Discharge Data Disposition: Disch To Home/Self Care Condition at Discharge: Stable Discharge Diet: heart healthy Activity: no lifting (> 10lb) Hygiene: may shower (Do not submerge or soak wounds; did not scrub wounds. Pat dry.) Driving: not until seen by doctor Contact your physician if you experience:: fever over 101, Redness or swelling, Nausea/Vomiting, Shortness of breath, Bleeding Wound / Dressing Care Instructions: Keep surgical incisions clean, dry and covered. Avoid excessive perspiration. - Discharge Medications New HYDROcodone/ACETAMIN 7.5-325 [Carlisle 7.5-325] 1 tablet PO Q4H PRN #30 tablet PRN Reason: Pain Moderate To Severe (4-10) Continue Ciprofloxacin 0.3% Oph Soln [Ciloxan 0.3% Oph Soln] 1 drop RIGHT EYE QID prednisoLONE AC 1% OPH SUSP [Pred Forte] 1 drop RIGHT EYE QID prednisoLONE AC 1% OPH SUSP [Pred Forte] 1 drop LEFT EYE BID Gabapentin 300 mg PO 1200 Gabapentin 600 mg PO BID Aliskiren/Hydrochlorothiazide [Tekturna Hct 300-12.5 mg Tab] 1 each PO DAILY Ketorolac 0.5% Oph Soln [Acular 0.5% Oph Soln] 1 drop RIGHT EYE QID Ketorolac 0.5% Oph Soln [Acular 0.5% Oph Soln] 1 drop LEFT EYE BID Ciprofloxacin 0.3% Oph Soln [Ciloxan 0.3% Oph Soln] 1 drop LEFT EYE BID Aliskiren/Hydrochlorothiazide [Tekturna Hct 300-12.5 mg Tab] 1 tablet PO QAM - Follow Up or Referral Follow Up: Moy Peck III., MD [Physician] - 1 Week Gabriela Parkinson MD [Physician] - (PRN) - Forms/Instructions Instructions: How to Take a Blood Pressure (DC), Hypertension (DC), Pancreatitis (DC), Laparoscopic Cholecystectomy (DC) Additional Discharge Instructions: Follow-up with primary care provider in 7-10 days for hospital follow-up and blood pressure review Exam - Constitutional Vitals: Period Temp Pulse Resp BP Sys/Lazaro Pulse Ox Last 24 Hr 97.6 F-98.4 F 50-96 14-20 118-178/56-92 90-98 General appearance: no acute distress - Head Head exam: Present: normocephalic - Respiratory Respiratory exam: Present: clear to auscultation bilaterally - Cardiovascular Cardiovascular exam: Present: regular rate and rhythm - GI/Abdominal GI/Abdominal exam: Present: normal bowel sounds, soft, other (surgical incisions c/d/i. Appropriate p/o tenderness. ). Absent: distended - Extremities Exam Extremities exam: Absent: calf tenderness, edema - Neurological Exam Neurological exam: Present: alert, oriented X3 Discharge Results Procedures and tests throughout hospitalization: 1. Echocardiogram 12/16/2016: EF 60%; grade 2 diastolic dysfunction; tricuspid and aortic valve regurgitation 2. Laparoscopic cholecystectomy with intraoperative cholangiogram on 12/18/[address] Peck; no complication; pathology pending at the time of discharge Labs on day of discharge: Labs from last 24 hours 12/19/16 05:32 Sodium 141 Potassium 3.9 Chloride 107 Carbon Dioxide 31 Anion Gap 6.9 BUN 10 Creatinine 1.20 H GFR Calculation 46 BUN/Creatinine Ratio 8.00 Glucose 88 Calculated Osmolality 278.3 Calcium 8.4 L Total Bilirubin 0.90 AST 16 ALT 28 Alkaline Phosphatase 64 Total Protein 6.8 Albumin 2.8 L Globulin 4.0 H Albumin/Globulin Ratio 0.7 L - Imaging and Cardiology Procedure: Abdominal x-ray: image reviewed by me, report reviewed by me, Chest x -ray: image reviewed by me, report reviewed by me, CT Abdomen and Pelvis: image reviewed by me, report reviewed by me, Ultrasound: image reviewed by me, report reviewed by me (gallbladder) DS: Provider Date of admission: 12/12/16 16:29 Primary care physician: . No PCP Attending physician on admission: Moy Peck III., Consults: 12/16/16 07:32 Consult to Physician [CONS] Routine Comment: abnormal EKG Consulting Provider: Cardiology - [facility] Consulting Provider Notified: Yes When should Consulting Provider be notified: Now Consult to Specialist Group: Cardiology Person Notified: reinaldo madrigal Date Notified: 12/16/16 Time Notified: 08:17 Discharging clinician: Edwina Cruz PA-C
[2016-12-19] MEDS: ENOXAPARIN 30 MG/0.3 ML SYRINGE SUBCUT SCH (10:30)
--- NOTE | 2016-12-19 14:23 | Pathology Report from [facility] ---
[facility] [place] [id number] PATIENT NAME : Kyle Berry ORDERING DR : PAUL KEEN III, MD CLINICAL HX: Acute pancreatitis POST-OP DX: Same SPECIMEN INFO: Gallbladder GROSS DESCRIPTION: The specimen is received in formalin labeled KYLE BERRY consists of an intact gallbladder measuring 9.5 x 3.7 cm. The serosa is smooth and pink-hunt. The gallbladder wall has an average thickness of 0.3 cm. The mucosal surface is velvety and yellow-pink. The lumen is filled with yellow bile with several pale green stones noted measuring up to 0.8 cm. Dealer Account Manager sections are submitted in one cassette. DIAGNOSIS FOR KYLE BERRY: GALLBLADDER, CHOLECYSTECTOMY: Acute and chronic cholecystitis; cholelithiasis. COLLECTED DATE: 12/18/2016 [facility] [place] DATE: 12/19/2016 ELECTRONICALLY SIGNED BY: Andrea Montejo M.D. 12/19/2016 - 10:36:27 MTDLuis F
[2016-12-19 16:16] VITALS: BP 156/89
--- NOTE | 2016-12-23 11:38 | Physician Query Form ---
CLICK EDIT DOCUMENT TO SELECT QUERY ANSWER --> OK --> SIGN Claudia Kennedy RN, CCDS Certified Clinical Admitting Interviewer W) [phone] (f) [phone] [email or web address] PROVIDERS: Make your selection(s) from the choices in EACH section by typing an "x" and enter comments in the comment section. Please use your independent medical judgment in providing your response. This request does not imply that any particular answer is desired or expected. CLINICAL INDICATORS: (Providers should not edit this section) Pathology Findings: "DIAGNOSIS FOR ADANRICKY MarthaNicci BERRY: GALLBLADDER, CHOLECYSTECTOMY: Acute and chronic cholecystitis; cholelithiasis" Abnormal Pathology findings are not reported unless an authorized provider indicates their clinical significance Please select the best choice: (x) I agree with the Pathology findings ( ) I disagree with the Pathology findings ( ) No clinical significance ( ) Other/clarification of findings, please specify: ( ) Clinically unable to determine COMMENTS: PLEASE ALSO DOCUMENT RESPONSE IN PROGRESS NOTES AND/OR DISCHARGE SUMMARY Use of terms such as suspected, likely, or probable (associated with a specific diagnosis that is being evaluated, monitored, or treated as if it exists) are acceptable and can be restated in the discharge summary if not ruled out. [facility]
== END 2016-12-19 15:58 | disposition home or self-care (01) | DRG 418 ==
LOC: EDUNIT# → N.ED 13:58 → N.EDINP 16:29 → N.3E 17:15
PROVIDERS: ADMIT Surgery; ATTEND Surgery
PROC: LAPCHOL (2016-12-18 08:21)